=== PATIENT | female | born 1955 | race Caucasian/White ===

== ENCOUNTER 2019-08-26 07:02 | Emergency (ER) | payer BC ==
[2019-08-26 07:15] VITALS: BP 164/80
--- NOTE | 2019-08-26 07:19 | UC ---
Respiratory Complaint HPI - History of Current Complaint Stated Complaint: COUGH HEADACHE Time Seen by Provider: 08/26/19 07:13 Hx Obtained From: Patient ?: No Onset/Duration: Lasting Weeks - 2 weeks; worse; more coughing, spasmodic Severity Initially: Mild Severity Currently: Moderate Pain Scale Used: 0-10 Numeric - 0 Character: Cough: Nonproductive, Cough: Productive - sometimes yellow sputum Aggravating Factors: Deep Breaths Associated Signs And Symptoms: Positive: Wheezing - Risk Factors Pulmonary Embolism Risk Factors: Negative Cardiac Risk Factors: Hypertension Tuberculosis Risk Factors: Negative - Allergies/Home Medications Allergies/Adverse Reactions: Allergies Allergy/AdvReac Type Severity Reaction Status Date / Time No Known Allergies Allergy Verified 08/26/19 07:13 Home Medications: Home Medications Acetaminophen TAB* [Tylenol TAB*] 325 mg PO Q4H PRN 08/26/19 [History Confirmed 08/26/19] Lisinopril TAB* [Prinivil TAB*] 5 mg PO DAILY 08/26/19 [History Confirmed ] Naproxen Sodium [Aleve] 220 mg PO BID PRN 08/26/19 [History Confirmed 08/26/19] guaiFENesin 100 mg/5 ml LIQ [Robitussin 100 mg/5ml LIQ] 5 mg PO Q4H PRN [History Confirmed 08/26/19] guaiFENesin [Mucinex] 600 mg PO BID PRN 08/26/19 [History Confirmed 08/26/19] PMH/Surg Hx/FS Hx/Imm Hx Previously Healthy: Yes Cardiovascular History: Hypertension Respiratory History: Bronchitis - Surgical History Surgical History: Yes Surgery Procedure, Year, and Place: C SECTION - Family History Known Family History: Positive: Cardiac Disease - Social History Occupation: Employed Full-time - [employer] – [place] Lives: Alone Smoking Status (MU): Never Smoked Tobacco Review of Systems All Other Systems Reviewed And Are Negative: Yes Constitutional: Positive: Negative Skin: Positive: Negative ENT: Positive: Sinus Congestion. Negative: Sinus Pain/Tenderness Respiratory: Positive: Cough, Other - congestion. Negative: Shortness Of Breath Cardiovascular: Positive: Negative Gastrointestinal: Positive: Negative Is Patient Immunocompromised?: No Physical Exam Triage Information Reviewed: Yes Appearance: Well-Nourished Vital Signs Reviewed: Yes Eye Exam: Normal ENT: Positive: Normal ENT inspection Neck exam: Normal Neck: Positive: Supple Respiratory: Positive: Rhonchi, Wheezing - both lung bases Cardiovascular Exam: Normal Cardiovascular: Positive: RRR Abdomen Description: Positive: Nontender, Soft Musculoskeletal Exam: Normal Neurological: Positive: Alert Skin: Negative: Rashes Respiratory Course/Dx - Course Course Of Treatment: Healthy 64 year old female with complaint of 2 weeks of worsening cough; intermittently productive, yellow; no fever or chest pain; hx of bronchitis treated with antibiotics 3 years ago; patient states that her sister recently was discharged from the hospital with a diagnosis of pneumonia; patient lives alone. Physical exam shows rhonchi and wheezes in both bases; afebrile; pulse 101; 164/ 80, patient is on Lisinopril. X RAY: negative for pneumonia. Dx is bronchitis with bronchospasm. I'm concerned about the patient developing into a pneumonia. I will start her on albuterol, spacer and augmentin for 10 days. I discussed her condition, treatment and plan with the patient. She knows to go to ED for signs or symptoms of pneumonia. Hypertension of 164/80 noted. Patient will recheck her blood pressure. Is on Lisinopril. - Differential Dx/Diagnosis Differential Diagnosis/HQI/PQRI: Bronchitis, Lower Resp Infection Provider Diagnosis: Bronchospasm with bronchitis, acute Discharge ED - Sign-Out/Discharge Documenting (check all that apply): Patient Departure All imaging exams completed and their final reports reviewed: Yes - Discharge Plan Condition: Stable Disposition: HOME Prescriptions: Albuterol HFA INHALER* [Ventolin HFA Inhaler*] 1 - 2 puff INH Q4H #1 mdi MDD 8 Amoxicillin/Clavulanate TAB* [Augmentin TAB 875*] 875 mg PO BID #20 tab MDD 2 Inhaler, Assist Devices [Aerochamber Mv] 1 mis XX Q6HR #1 mis Patient Education Materials: Acute Bronchitis (ED), Bronchospasm (ED) Referrals: Shaunna Helton MD [Primary Care Provider] - Additional Instructions: WE DISCUSSED: Your x ray does NOT show pneumonia. You do have: BRONCHITIS WITH BRONCHOSPASM (WHEEZING): You have bronchitis with bronchospasm (wheezing). Sometimes people develop wheezing with a chest cold. This occurs either because of an underlying tendency toward asthma or because the virus itself irritates the bronchial tubes. This irritation causes cough, shortness of breath, and wheezing. At home, we'll treat you with a bronchodilator inhaler. Most cases of bronchitis get better without antibiotics. We prescribe antibiotics when we believe bacteria are damaging your airways, or if there's high risk the bronchitis will worsen into pneumonia. Increase your fluid intake. A cool mist humidifier may make your lungs more comfortable. An expectorant (cough medicine that loosens phlegm) can help. Repeated episodes of bronchitis and bronchospasm may result in lung damage -- for example, chronic bronchitis, recurrent pneumonias, or emphysema. If you develop a fever, increased wheezing, chest pain, or severe shortness of breath, you should contact the doctor immediately. TREATMENT: Augmentin antibiotic: twice a day for 10 days ALBUTEROL AND SPACER: 2 PUFFS, FOUR TIMES A DAY FOR 2-5 DAYS FOR COUGH or WHEEZING Albuterol inhaler #1 Label: one to two puffs four times daily as needed for COUGH Aero-chamber (spacer) for use with oral inhaler Disp: 1 ALSO: STAND UNDER SHOWER STREAM TO LOOSEN SECRETIONS. STAY AWAY FROM ANY SMOKE OR IRRITANTS. LOTS OF TEA or WARM FLUIDS. Recheck for increased shortness of breath, fever, or chest pain. - Billing Disposition and Condition Condition: STABLE Disposition: Home
== END 2019-08-26 08:12 | disposition home or self-care (01) ==
LOC: UCEAST 07:02
DX: J20.9 Acute bronchitis, unspecified (principal); I10 Essential (primary) hypertension; Z79.899 Other long term (current) drug therapy
CPT/HCPCS: 71046; 99212; G0463